=== PATIENT | male | born 1960 | race Two or more races ===

== ENCOUNTER 2019-11-30 16:16 | Outpatient (CLI) | payer OTHER ==
[2019-11-30 17:10] LABS: PLATELET COUNT 236 K/uL (142-355)
[2019-11-30 17:33] LABS: POTASSIUM 3.4 mmol/L (3.6-5.2)
== END 2019-11-30 19:14 | disposition home or self-care (01) ==
LOC: RAD 16:16
PROVIDERS: Internal Medicine
DX: R06.02 Shortness of breath (principal)
CPT/HCPCS: 36415; 80053; 83880; 85027; 85379